=== PATIENT | female | born 1945 | race Caucasian/White ===

== ENCOUNTER → 2018-08-07 09:21 | Outpatient (CLI) | payer MEDICARE, OTHER ==
[2016-07-22 09:27] VITALS: BMI 29.2
[~2018-08-07 09:21] MED LIST: BAYER CHEWABLE81 MG PO; CIPRO500 MG PO; COZAAR50 MG PO; FLORAJEN3 CAPS460 MG PO; GLUCOPHAGE500 MG PO; HCTZ25 MG PO; HYDROCHLOROTHIA25 MG GT; PREVACID15 MG PO; PROZAC40 MG; PROZAC40 MG PO; REQUIP4 MG; TOPROL XL50 MG PO
== END | disposition home or self-care (01) ==
LOC: D.NM 09:15
DX: E21.3 Hyperparathyroidism, unspecified (principal)

== ENCOUNTER → 2019-05-28 09:19 | Outpatient (CLI) | payer MEDICARE, OTHER ==
[2016-07-22 09:27] VITALS: BMI 29.2
== END | disposition home or self-care (01) ==
LOC: D.NM 09:15
PROVIDERS: ATTEND Family Medicine
DX: E21.3 Hyperparathyroidism, unspecified (principal)